=== PATIENT | male | born 1945 | race Caucasian/White ===

== ENCOUNTER 2016-06-10 07:21 | Day surgery (SDC) | payer MEDICARE, BC ==
[2016-06-10] MEDS ORDERED: Lactated Ringers 1,000 ML IV SCH (08:00)
[2016-06-10] MEDS ORDERED: Lidocaine 2% 100 MG/5 ML Syringe IVPUSH ONE (08:40)
[2016-06-10] MEDS ORDERED: Midazolam 1 MG/ML 2 ML SDV IV ONE (08:40)
[2016-06-10] MEDS ORDERED: Propofol 200 MG/20 ML SDV IV ONE (08:40)
--- NOTE | 2016-06-10 08:59 | PCM.OPNOTE ---
- General Post-Op/Procedure Note Date of Surgery/Procedure: 06/10/16 Operative Procedure(s): egd with bx Findings: duodenitis esophagitis hiatal hernia Pre Op Diagnosis: dysphagia Post-Op Diagnosis: duodenitis. esophagitis. hiatal hernia Anesthesia Technique: MAC Primary Surgeon: Marco Montoya Anesthesia Provider: Alissa Hawley Pathology: duodenum distal esophagus Complications: None Condition: Good Free Text/Narrative:: see dictation
[2016-06-10 09:36] VITALS: BP 127/85
--- NOTE | 2016-06-10 13:25 | OR ---
DATE OF OPERATION: 06/10/2016 SURGEON: Marco Montoya MD PROCEDURE PERFORMED: EGD with cold forceps biopsy. PREOPERATIVE DIAGNOSIS: Dysphagia. POSTOPERATIVE DIAGNOSES: Duodenitis, esophagitis, and a hiatal hernia. INDICATIONS FOR PROCEDURE: This is a 70-year-old white male who is referred with the above-mentioned complaints of dysphagia. He was offered and accepted an EGD. DESCRIPTION OF PROCEDURE: After an excellent IV sedation was administered, the bite block was inserted. The flexible endoscope was passed without difficulty down the patient's esophagus, into the stomach. The stomach was insufflated. Scope was passed through the pylorus to the second portion of the duodenum and slowly withdrawn. The following findings were noted. Duodenum, first portion duodenitis. Biopsies were taken. The stomach demonstrated a hiatal hernia, otherwise, unremarkable. GE junction was noted to be at 40 cm with erythema and findings suggestive of esophagitis. Biopsies were taken. The stomach was deflated. The scope was removed. The remainder of the esophageal exam was unremarkable. /[id number] /KARINAL
== END 2016-06-10 10:06 | disposition home or self-care (01) ==
LOC: FB.SDS 07:21
PROVIDERS: ATTEND Surgery
PROC: 0DB98ZX Excision of Duodenum, Via Natural or Artificial Opening Endoscopic, Diagnostic (ICD-10-PCS; principal; 2016-06-10)
PROC: 0DB48ZX Excision of Esophagogastric Junction, Via Natural or Artificial Opening Endoscopic, Diagnostic (ICD-10-PCS; 2016-06-10)
DX: K29.80 Duodenitis without bleeding (principal); K44.9 Diaphragmatic hernia without obstruction or gangrene; K21.0 Gastro-esophageal reflux disease with esophagitis; K22.70 Barrett's esophagus without dysplasia; Z79.82 Long term (current) use of aspirin; Z79.899 Other long term (current) drug therapy; I10 Essential (primary) hypertension; I25.10 Atherosclerotic heart disease of native coronary artery without angina pectoris; E78.5 Hyperlipidemia, unspecified; F32.9 Major depressive disorder, single episode, unspecified; Z87.891 Personal history of nicotine dependence
CPT/HCPCS: 00740; 43239; 88305; 88313; J2250; J2704; J7120

== ENCOUNTER 2023-11-22 08:49 | Day surgery (SDC) | payer MEDICARE, BC ==
[~2023-11-22 08:49] MED LIST: Lactated Ringers 1,000 ML IV PRN
[2023-11-22] MEDS ORDERED: Midazolam 1 MG/ML 2 ML SDV IV ONE (08:50)
[2023-11-22] MEDS ORDERED: fentaNYL 100 MCG/2 ML SDV IV ONE (08:50)
[2023-11-22] MEDS: Sodium Chloride 0.9% 10 ML Syringe FLUSH PRN (09:51)
[2023-11-22] MEDS: acetaZOLAMIDE 500 MG Cap.ER PO ONE (11:05)
[2023-11-22 14:24] VITALS: BP 131/71; PULSE 52
== END 2023-11-22 11:40 | disposition home or self-care (01) ==
LOC: FB.SDS 08:49
PROVIDERS: ATTEND Ophthalmology
DX: H25.9 Unspecified age-related cataract (principal); H40.1122 Primary open-angle glaucoma, left eye, moderate stage; I10 Essential (primary) hypertension; J45.909 Unspecified asthma, uncomplicated; K21.9 Gastro-esophageal reflux disease without esophagitis; E78.5 Hyperlipidemia, unspecified; Z79.899 Other long term (current) drug therapy; Z79.82 Long term (current) use of aspirin; Z87.891 Personal history of nicotine dependence
CPT/HCPCS: 66991; A9270; C1783; J2250; J3010; J3490; V2632; 00142; 99100

== ENCOUNTER 2024-02-07 06:59 | Day surgery (SDC) | payer MEDICARE, BC ==
[~2024-02-07 06:59] MED LIST changes: +Sodium Chloride 0.9% 10 ML Syringe FLUSH PRN
[2024-02-07] MEDS ORDERED: fentaNYL 100 MCG/2 ML SDV IV ONE (07:00)
[2024-02-07] MEDS ORDERED: Midazolam 1 MG/ML 2 ML SDV IV ONE (07:00)
[2024-02-07] MEDS: acetaZOLAMIDE 500 MG Cap.ER PO ONE (09:41)
[2024-02-07 13:02] VITALS: BP 153/84; PULSE 64
== END 2024-02-07 10:01 | disposition home or self-care (01) ==
LOC: FB.SDS 06:59
PROVIDERS: ATTEND Ophthalmology
DX: H25.9 Unspecified age-related cataract (principal); I10 Essential (primary) hypertension; J43.9 Emphysema, unspecified; K21.9 Gastro-esophageal reflux disease without esophagitis; E78.5 Hyperlipidemia, unspecified; Z87.891 Personal history of nicotine dependence; Z79.82 Long term (current) use of aspirin; Z79.899 Other long term (current) drug therapy
CPT/HCPCS: 66984; A9270; J2250; J3010; V2632; 00142; 99100